=== PATIENT | female | born 1985 | race Caucasian/White ===

== ENCOUNTER 2020-12-16 23:41 | Emergency (ER) | payer OTHER ==
[2020-12-17 00:51] LABS: HEMOGLOBIN 13.3 gm/dl (12.3-15.3); RED BLOOD COUNT 4.38 M/UL (4.00-5.10); WHITE BLOOD COUNT 11.1 K/UL (4.5-11.0)
[2020-12-17 01:16] LABS: BUN/CREATININE RATIO 14 (0-10)
[2020-12-17] MEDS ORDERED: CEPHALEXIN250 M1 PO (03:18)
== END 2020-12-17 03:24 | disposition home or self-care (01) ==
LOC: ER1 23:41
PROVIDERS: Physician Assistant
DX: O99.891 Other specified diseases and conditions complicating pregnancy (principal); R82.71 Bacteriuria; R10.13 Epigastric pain; R10.12 Left upper quadrant pain; Z3A.13 13 weeks gestation of pregnancy
CPT/HCPCS: 80053; 81001; 83690; 84702; 84703; 85025; 87077; 87086; 87186; 99284

== ENCOUNTER 2021-03-03 09:00 | Emergency (ER) | payer OTHER ==
[~2021-03-03 09:00] MED LIST: CEPHALEXIN250 M1 PO
[2021-03-03 10:34] LABS: RED BLOOD COUNT 3.96 M/UL (4.00-5.10)
[2021-03-03 11:04] LABS: BUN/CREATININE RATIO 16 (0-10)
[2021-03-03] MEDS ORDERED: MACROBID 100 M100 MG PO (12:43)
== END 2021-03-03 12:55 | disposition home or self-care (01) ==
LOC: ER1 09:00
PROVIDERS: Physician Assistant Medical
DX: O23.42 Unspecified infection of urinary tract in pregnancy, second trimester (principal); N39.0 Urinary tract infection, site not specified; Z3A.19 19 weeks gestation of pregnancy
CPT/HCPCS: 76815; 80053; 81001; 85025; 85610; 86900; 86901; 87077; 87086; 87186; 99284

== ENCOUNTER 2021-06-04 12:17 | Outpatient (CLI) | payer OTHER ==
[~2021-06-04 12:17] MED LIST changes: +MACROBID 100 M100 MG PO
== END 2021-06-04 15:24 | disposition home or self-care (01) ==
LOC: GENOP 12:17
PROVIDERS: Obstetrics & Gynecology
DX: O99.891 Other specified diseases and conditions complicating pregnancy (principal); N89.8 Other specified noninflammatory disorders of vagina; R10.2 Pelvic and perineal pain; O36.8130 Decreased fetal movements, third trimester, not applicable or unspecified; O99.323 Drug use complicating pregnancy, third trimester; F11.21 Opioid dependence, in remission; Z3A.32 32 weeks gestation of pregnancy
CPT/HCPCS: 59025; 80307; 81001; 82962; 83518

== ENCOUNTER 2021-07-04 21:56 | Emergency (ER) | payer OTHER | END 2021-07-05 00:07 | disposition home or self-care (01) | LOC: ER1 21:56 | DX: Z01.812 Encounter for preprocedural laboratory examination (principal); Z34.90 Encounter for supervision of normal pregnancy, unspecified, unspecified trimester; Z20.822 Contact with and (suspected) exposure to COVID-19 | CPT/HCPCS: 99284; U0003 ==

== ENCOUNTER 2021-07-07 06:43 | Inpatient (IN) | payer OTHER ==
[~2021-07-07] VITALS: Ht 170.2 cm; Wt 81.2 kg
[2021-07-07 07:14] LABS: HEMOGLOBIN 12.1 gm/dl (12.3-15.3); RED BLOOD COUNT 4.06 M/UL (4.00-5.10); WHITE BLOOD COUNT 11.7 K/UL (4.5-11.0)
[2021-07-07 07:32] LABS: BUN/CREATININE RATIO 9 (0-10)
[2021-07-07] MEDS ORDERED: IRON325 M1 PO (07:38)
[2021-07-07] MEDS ORDERED: COLACE100 MG PO (07:39)
[2021-07-07] MEDS ORDERED: PRENATAL VITAM1 EAC3 PO (07:42)
[2021-07-07] MEDS ORDERED: ACID CONTROLLER20 MG PO (07:42)
[2021-07-07] MEDS ORDERED: LEVEMIR IN100 UNITS/ INJ (07:46)
[2021-07-07] MEDS ORDERED: HUMULIN N100 UNIT/1 SQ (07:47)
[2021-07-07] MEDS ORDERED: ALBUTEROL1.25 MG/3 INH (07:49)
[2021-07-07] MEDS ORDERED: BUPRENORPHIN-N1 EACH SL ×2 (07:51→10:07)
[2021-07-07] MEDS ORDERED: COLACE 100MG C100 MG PO (10:07)
[2021-07-07] MEDS ORDERED: GABAPENTIN300 MG PO (10:07)
[2021-07-07] MEDS ORDERED: NAPROXEN250 MG PO (10:07)
[2021-07-07] MEDS ORDERED: METFORMIN ER G500 MG PO (10:07)
[2021-07-08 07:09] LABS: HEMOGLOBIN 11.1 gm/dl (12.3-15.3)
== END 2021-07-10 12:25 | disposition home or self-care (01) | DRG 787 ==
LOC: OB 06:43
PROVIDERS: Obstetrics & Gynecology; ADMIT Obstetrics & Gynecology
PROC: 3E0234Z Introduction of Serum, Toxoid and Vaccine into Muscle, Percutaneous Approach (ICD-10-PCS; 2021-07-07)
PROC: 10D00Z1 Extraction of Products of Conception, Low, Open Approach (ICD-10-PCS; principal; 2021-07-07 09:00)
DX: O34.211 Maternal care for low transverse scar from previous cesarean delivery (principal); O99.324 Drug use complicating childbirth; F11.20 Opioid dependence, uncomplicated; O98.82 Other maternal infectious and parasitic diseases complicating childbirth; F31.60 Bipolar disorder, current episode mixed, unspecified; O98.32 Other infections with a predominantly sexual mode of transmission complicating childbirth; Z20.822 Contact with and (suspected) exposure to COVID-19; O99.334 Smoking (tobacco) complicating childbirth; O99.02 Anemia complicating childbirth; O24.424 Gestational diabetes mellitus in childbirth, insulin controlled; D64.9 Anemia, unspecified; O36.63X0 Maternal care for excessive fetal growth, third trimester, not applicable or unspecified; O99.344 Other mental disorders complicating childbirth; O99.62 Diseases of the digestive system complicating childbirth; K21.9 Gastro-esophageal reflux disease without esophagitis; Z3A.37 37 weeks gestation of pregnancy; Z37.0 Single live birth; Z79.899 Other long term (current) drug therapy; Z79.84 Long term (current) use of oral hypoglycemic drugs; Z72.0 Tobacco use; Z82.49 Family history of ischemic heart disease and other diseases of the circulatory system; Z83.3 Family history of diabetes mellitus; Z81.8 Family history of other mental and behavioral disorders; Z90.710 Acquired absence of both cervix and uterus; Z23 Encounter for immunization
CPT/HCPCS: 36415; 80053; 80307; 81001; 82800; 82962; 85014; 85018; 85025; 90715; C9113; J0690; J1170; J1885; J2370; J2405; J2590; J7030; J7120